=== PATIENT | female | born 1945 | race Caucasian/White ===

== ENCOUNTER → 2020-11-25 | Outpatient (CLI) | payer MEDICARE, OTHER ==
[~2020-11-25] MED LIST: ACETAMINOPHEN325 MG PO; ACYCLOVIR400 MG PO; AMLODIPINE BESYL5 MG PO; CLARITIN 10MG T10 MG PO; COLACE 100MG C100 MG PO; COMPAZINE10 MG PO; DONEPEZIL HCL5 MG PO; FERROUS SULFAT325 M2 PO; LEVOFLOXACIN500 MG PO; LOW DOSE ASPIRI81 MG PO; MAGIC MOUTHWASH PO; MEGACE 400400 MG/10 PO; NOXAFIL100 MG PO; PREDNISONE 10 M10 MG PO; PROZAC 20 MG CA20 MG PO; SYNTHROID75 MCG PO; TAB-A-VITE TA400 MC1 PO; VALACYCLOVIR500 MG PO; VENTOLIN HFA 66.7 GM INH; VITAMIN D 40400 UNIT PO
== END ==
LOC: EXRD 13:09
DX: Z09 Encounter for follow-up examination after completed treatment for conditions other than malignant neoplasm (principal); Z86.16 Personal history of COVID-19; R91.8 Other nonspecific abnormal finding of lung field
CPT/HCPCS: 71046

== ENCOUNTER → 2021-01-15 | Outpatient (CLI) | payer MEDICARE, OTHER ==
[2021-01-15 13:44] LABS: RED BLOOD COUNT 1.66 M/UL (4.00-5.10); WHITE BLOOD COUNT 1.8 K/UL (4.5-11.0)
[2021-01-15 15:06] LABS: HEMOGLOBIN 5.9 gm/dl (12.3-15.3)
== END ==
LOC: LAB 11:26
PROVIDERS: Family Medicine
DX: D50.9 Iron deficiency anemia, unspecified (principal); D61.818 Other pancytopenia; R53.83 Other fatigue; R94.4 Abnormal results of kidney function studies
CPT/HCPCS: 36415; 80048; 82728; 83540; 83550; 85025; 85045

== ENCOUNTER → 2021-02-02 | Outpatient (CLI) | payer MEDICARE, OTHER ==
[2021-02-02 09:30] LABS: HEMOGLOBIN 8.6 gm/dl (12.3-15.3); RED BLOOD COUNT 2.71 M/UL (4.00-5.10)
[2021-02-02 09:36] LABS: WHITE BLOOD COUNT 1.3 K/UL (4.5-11.0)
== END ==
LOC: LAB 09:09
PROVIDERS: Internal Medicine
DX: D61.818 Other pancytopenia (principal); C92.A0 Acute myeloid leukemia with multilineage dysplasia, not having achieved remission
CPT/HCPCS: 36415; 85025

== ENCOUNTER → 2021-02-11 | Outpatient (CLI) | payer MEDICARE, OTHER ==
[2021-02-11 14:09] LABS: HEMOGLOBIN 7.6 gm/dl (12.3-15.3)
== END ==
LOC: LAB 12:45
PROVIDERS: Internal Medicine
DX: D61.818 Other pancytopenia (principal); C92.A0 Acute myeloid leukemia with multilineage dysplasia, not having achieved remission
CPT/HCPCS: 36415; 85014; 85018; 86850; 86900; 86901; 86920

== ENCOUNTER → 2021-02-12 | Outpatient (CLI) | payer MEDICARE, OTHER | LOC: OPSV 08:00 | DX: D61.818 Other pancytopenia (principal); C92.A0 Acute myeloid leukemia with multilineage dysplasia, not having achieved remission | CPT/HCPCS: G0463; J7050 ==

== ENCOUNTER → 2021-02-14 | Outpatient (CLI) | payer MEDICARE ==
[2021-02-14 11:12] LABS: HEMOGLOBIN 7.5 gm/dl (12.3-15.3); RED BLOOD COUNT 2.42 M/UL (4.00-5.10)
[2021-02-14 11:17] LABS: WHITE BLOOD COUNT 0.6 K/UL (4.5-11.0)
== END ==
LOC: LAB 10:35
PROVIDERS: Internal Medicine
DX: C92.A0 Acute myeloid leukemia with multilineage dysplasia, not having achieved remission (principal); D61.818 Other pancytopenia
CPT/HCPCS: 36415; 85025

== ENCOUNTER → 2021-02-17 | Outpatient (CLI) | payer MEDICARE ==
[2021-02-17 11:48] LABS: HEMOGLOBIN 7.5 gm/dl (12.3-15.3); RED BLOOD COUNT 2.43 M/UL (4.00-5.10)
[2021-02-17 12:08] LABS: WHITE BLOOD COUNT 0.9 K/UL (4.5-11.0)
== END ==
LOC: LAB 11:17
PROVIDERS: Internal Medicine
DX: C92.A0 Acute myeloid leukemia with multilineage dysplasia, not having achieved remission (principal); D61.818 Other pancytopenia
CPT/HCPCS: 36415; 85025

== ENCOUNTER → 2021-02-18 | Outpatient (CLI) | payer MEDICARE, SELFPAY | LOC: EXRD 10:40 | DX: M54.5 Low back pain (principal); M43.16 Spondylolisthesis, lumbar region; M51.36 Other intervertebral disc degeneration, lumbar region | CPT/HCPCS: 72110 ==

== ENCOUNTER → 2021-02-20 | Outpatient (CLI) | payer MEDICARE, SELFPAY ==
[2021-02-20 08:59] LABS: HEMOGLOBIN 8.1 gm/dl (12.3-15.3); RED BLOOD COUNT 2.59 M/UL (4.00-5.10)
[2021-02-20 09:00] LABS: WHITE BLOOD COUNT 1.2 K/UL (4.5-11.0)
== END ==
LOC: LAB 08:32
PROVIDERS: Internal Medicine
DX: D61.818 Other pancytopenia (principal); C92.A0 Acute myeloid leukemia with multilineage dysplasia, not having achieved remission
CPT/HCPCS: 36415; 85025

== ENCOUNTER 2021-03-25 21:38 | Emergency (ER) | payer MEDICARE, SELFPAY ==
[~2021-03-25 21:38] MED LIST changes: -ACETAMINOPHEN325 MG PO; -ACYCLOVIR400 MG PO; -AMLODIPINE BESYL5 MG PO; -CLARITIN 10MG T10 MG PO; -COMPAZINE10 MG PO; -DONEPEZIL HCL5 MG PO; -LEVOFLOXACIN500 MG PO; -LOW DOSE ASPIRI81 MG PO; -MAGIC MOUTHWASH PO; -NOXAFIL100 MG PO; -PROZAC 20 MG CA20 MG PO; -VALACYCLOVIR500 MG PO
[2021-03-27] MEDS ORDERED: LOW DOSE ASPIRI81 MG PO (09:25)
[2021-03-27] MEDS ORDERED: NOXAFIL100 MG PO (09:25)
[2021-03-27] MEDS ORDERED: LEVOFLOXACIN500 MG PO (09:26)
[2021-03-27] MEDS ORDERED: ACYCLOVIR400 MG PO (09:26)
[2021-03-27] MEDS ORDERED: COMPAZINE10 MG PO (09:29)
== END 2021-03-26 01:14 | disposition home or self-care (01) ==
LOC: ER1 21:38
DX: S09.90XA Unspecified injury of head, initial encounter (principal); S80.02XA Contusion of left knee, initial encounter; S00.83XA Contusion of other part of head, initial encounter; Z90.710 Acquired absence of both cervix and uterus; W22.8XXA Striking against or struck by other objects, initial encounter
CPT/HCPCS: 70450; 73564; 99284

== ENCOUNTER 2021-03-27 03:43 | Inpatient (IN) | payer MEDICARE, OTHER ==
[~2021-03-27] VITALS: Ht 165 cm; Wt 74.8 kg
[2021-03-27 04:41] LABS: HEMOGLOBIN 8.5 gm/dl (12.3-15.3); RED BLOOD COUNT 2.67 M/UL (4.00-5.10)
[2021-03-27 05:02] LABS: WHITE BLOOD COUNT 0.1 K/UL (4.5-11.0)
[2021-03-27 08:53] LABS: HEMOGLOBIN 7.4 gm/dl (12.3-15.3)
[2021-03-27] MEDS ORDERED: LOW DOSE ASPIRI81 MG PO (09:25)
[2021-03-27] MEDS ORDERED: NOXAFIL100 MG PO (09:25)
[2021-03-27] MEDS ORDERED: ACYCLOVIR400 MG PO (09:26)
[2021-03-27] MEDS ORDERED: LEVOFLOXACIN500 MG PO (09:26)
[2021-03-27] MEDS ORDERED: COMPAZINE10 MG PO (09:29)
[2021-03-27 09:33] LABS: RED BLOOD COUNT 2.23 M/UL (4.00-5.10); WHITE BLOOD COUNT 0.1 K/UL (4.5-11.0)
[2021-03-27 10:33] LABS: CAMPYLOBACTER Not Detected (Negative); CLOSTRIDIUM DIFFICILE TOX A/B Not Detected (Negative); E.COLI 0157 Not Detected (Negative); ENTEROAGGREGATIVE E.COLI (EAEC Not Detected (Negative); ENTEROPATHOGENIC E.COLI (EPEC) Not Detected (Negative); ENTEROTOXIGENIC E.COLI (ETEC) Not Detected (Negative); PLESIOMONAS SHIGELLOIDES Not Detected (Negative); SALMONELLA Not Detected (Negative); SHIGA-LIK TOX.PRO.E.COLI (STEC Not Detected (Negative); VIBRIO Not Detected (Negative); VIBRIO CHOLERAE Not Detected (Negative); YERSINIA ENTEROCOLITICA Not Detected (Negative)
[2021-03-27 10:34] LABS: ADENOVIRUS F 40/41 Not Detected (Negative); ASTROVIRUS Not Detected (Negative); CRYPTOSPORIDIUM Not Detected (Negative); ENTAMOEBA HISTOLYTICA Not Detected (Negative); GIARDIA LAMBLIA Not Detected (Negative); NOROVIRUS GI/GII Not Detected (Negative); ROTOVIRUS A Not Detected (Negative); SAPOVIRUS Not Detected (Negative); SHIG/ENTEROINVAS.ECOLI (EIEC) Not Detected (Negative)
--- NOTE | 2021-03-27 18:15 | NUR ---
PT ARRIVED TO FLOOR FROM ED AT THIS TIME, DAUGHTER AT BEDSIDE, VSS AT THIS TIME WILL CONTINUE TO MONITOR AND PASS ON TO MEDICAL CODING INSTRUCTOR RN
[2021-03-28 02:45] LABS: RED BLOOD COUNT 2.02 M/UL (4.00-5.10)
[2021-03-28 02:48] LABS: WHITE BLOOD COUNT 0.1 K/UL (4.5-11.0)
[2021-03-28 02:49] LABS: HEMOGLOBIN 6.7 gm/dl (12.3-15.3)
--- NOTE | 2021-03-28 13:59 | NUR ---
NO CHANGE FROM PREVIOUS ASSESSMENT
[2021-03-29 04:14] LABS: RED BLOOD COUNT 2.46 M/UL (4.00-5.10); WHITE BLOOD COUNT 0.1 K/UL (4.5-11.0)
[2021-03-30 03:15] LABS: HEMOGLOBIN 8.1 gm/dl (12.3-15.3); RED BLOOD COUNT 2.47 M/UL (4.00-5.10)
[2021-03-30 03:22] LABS: WHITE BLOOD COUNT 0.1 K/UL (4.5-11.0)
[2021-03-31 11:26] LABS: HEMOGLOBIN 7.9 gm/dl (12.3-15.3); RED BLOOD COUNT 2.43 M/UL (4.00-5.10)
[2021-03-31 11:33] LABS: WHITE BLOOD COUNT 0.2 K/UL (4.5-11.0)
[2021-04-01 03:14] LABS: HEMOGLOBIN 7.8 gm/dl (12.3-15.3); RED BLOOD COUNT 2.4 M/UL (4.00-5.10)
[2021-04-01 03:22] LABS: WHITE BLOOD COUNT 0.3 K/UL (4.5-11.0)
[2021-04-02 11:48] LABS: HEMOGLOBIN 7.6 gm/dl (12.3-15.3); RED BLOOD COUNT 2.33 M/UL (4.00-5.10)
[2021-04-02 12:12] LABS: WHITE BLOOD COUNT 0.4 K/UL (4.5-11.0)
[2021-04-02 18:45] LABS: HEMOGLOBIN 7.1 gm/dl (12.3-15.3); RED BLOOD COUNT 2.2 M/UL (4.00-5.10)
[2021-04-02 18:50] LABS: WHITE BLOOD COUNT 0.5 K/UL (4.5-11.0)
[2021-04-03 08:17] LABS: HEMOGLOBIN 7.3 gm/dl (12.3-15.3); RED BLOOD COUNT 2.22 M/UL (4.00-5.10)
[2021-04-03 08:19] LABS: WHITE BLOOD COUNT 0.6 K/UL (4.5-11.0)
[2021-04-04 14:56] LABS: HEMOGLOBIN 7.1 gm/dl (12.3-15.3); RED BLOOD COUNT 2.18 M/UL (4.00-5.10)
[2021-04-04 15:00] LABS: WHITE BLOOD COUNT 0.8 K/UL (4.5-11.0)
[2021-04-05 03:17] LABS: RED BLOOD COUNT 2.18 M/UL (4.00-5.10)
[2021-04-05 03:21] LABS: WHITE BLOOD COUNT 1.2 K/UL (4.5-11.0)
[2021-04-06 01:54] LABS: RED BLOOD COUNT 2.05 M/UL (4.00-5.10)
[2021-04-06 01:56] LABS: HEMOGLOBIN 6.6 gm/dl (12.3-15.3); WHITE BLOOD COUNT 1.2 K/UL (4.5-11.0)
[2021-04-07 04:55] LABS: RED BLOOD COUNT 1.97 M/UL (4.00-5.10)
[2021-04-07 05:02] LABS: HEMOGLOBIN 6.3 gm/dl (12.3-15.3); WHITE BLOOD COUNT 1.8 K/UL (4.5-11.0)
[2021-04-07] MEDS ORDERED: MAGIC MOUTHWASH PO (15:47)
[2021-04-07] MEDS ORDERED: CLARITIN 10MG T10 MG PO (15:47)
[2021-04-07] MEDS ORDERED: ACETAMINOPHEN325 MG PO (15:47)
[2021-04-07] MEDS ORDERED: VALACYCLOVIR500 MG PO (15:47)
[2021-04-08 05:10] LABS: RED BLOOD COUNT 1.94 M/UL (4.00-5.10); WHITE BLOOD COUNT 1.6 K/UL (4.5-11.0)
[2021-04-08 05:18] LABS: HEMOGLOBIN 6.2 gm/dl (12.3-15.3)
[2021-04-08 22:35] LABS: HEMOGLOBIN 7.1 gm/dl (12.3-15.3)
[2021-04-08 22:48] LABS: RED BLOOD COUNT 2.31 M/UL (4.00-5.10); WHITE BLOOD COUNT 2.1 K/UL (4.5-11.0)
[2021-04-09 05:08] LABS: RED BLOOD COUNT 2.2 M/UL (4.00-5.10); WHITE BLOOD COUNT 1.9 K/UL (4.5-11.0)
[2021-04-09 05:10] LABS: HEMOGLOBIN 6.9 gm/dl (12.3-15.3)
--- NOTE | 2021-04-09 17:00 | NUR ---
ER DR, DR. PATEL CAME TO FLOOR TO PLACE [place] ROCKET FOR PT'S PERSISTANT NOSE BLEED AND PT STATES SHE DID NOT WANT IT. DR. PATEL STATES TO LEAVE NOSE CLAMP IN PLACE LONG PT CAN TOLERATE AND IF BLEEDING PERSIST MAY WANT TO TRY THE LIQUID COCAINE. DR. RANDHAWA PRESENT ON FLOOR AND DR. PATEL EXPLAINED TO HIM WELL.
--- NOTE | 2021-04-09 17:58 | NUR ---
DR. LOPEZ CALLED AND ORDERED FOR PT TO HAVE ONE UNIT OF PLATELETS IN ADDITION TO THE ONE THAT WAS GIVEN.
--- NOTE | 2021-04-09 18:26 | NUR ---
DR. LOPEZ CALLED WITH NEW ORDERS NOTED
[2021-04-10 02:50] LABS: HEMOGLOBIN 7.1 gm/dl (12.3-15.3); RED BLOOD COUNT 2.27 M/UL (4.00-5.10); WHITE BLOOD COUNT 1.8 K/UL (4.5-11.0)
[2021-04-11 02:31] LABS: HEMOGLOBIN 8.2 gm/dl (12.3-15.3)
[2021-04-11 03:14] LABS: RED BLOOD COUNT 2.68 M/UL (4.00-5.10)
[2021-04-12 02:32] LABS: HEMOGLOBIN 8.3 gm/dl (12.3-15.3); RED BLOOD COUNT 2.67 M/UL (4.00-5.10)
--- NOTE | 2021-04-12 18:02 | NUR ---
PATIENT ARRIVED TO ROOM 4114 FROM 6101. NO ACUTE DISTRESS NOTED. ALERT, VERBAL. ORIENTED X4.
[2021-04-13 06:13] LABS: HEMOGLOBIN 8.3 gm/dl (12.3-15.3); RED BLOOD COUNT 2.68 M/UL (4.00-5.10)
[2021-04-14 06:00] LABS: HEMOGLOBIN 8.2 gm/dl (12.3-15.3); RED BLOOD COUNT 2.66 M/UL (4.00-5.10); WHITE BLOOD COUNT 2.1 K/UL (4.5-11.0)
--- NOTE | 2021-04-14 06:19 | NUR ---
notified dr jones of critical platelet level of 19. recieved no new orders. will continue to monitor.
--- NOTE | 2021-04-14 16:52 | NUR ---
PATIENT NOTED TO BE HAVING A NOSE BLEED. DR. FARRELL MADE AWARE. STATED SHE WOULD ADD NEW ORDERS FOR MEDICATION TO STOP BLEEDING AND ORDERS TO INFUSE.
--- NOTE | 2021-04-14 17:25 | NUR ---
RN NOTIFIED RESOURCE NURSE MARIA ESTHER OF PATIENT NOSEBLEED AND REQUESTED ASSIST WITH STOPPING IT. MARIA ESTHER CALLED RESPIRATORY DEPARTMENT AND REQUESTED A NOSE CLAMP TO ENSURE CONTINUOUS PRESSURE TO BLEEDING SOURCE. [facility] APPLIED PENDING ARRIVAL OF AFFREN AND NOSE CLAMP. AFFREN ADMINISTERED PER ORDER. CLAMP REAPPLIED TO NOSE, AFFREN ADMINISTERED. PATIENT INSTRUCTED TO LEAVE CLAMP IN PLACE TO ENSURE CESSATION OF BLEEDING, PATIENT VERBALIZED UNDERSTANDING.
--- NOTE | 2021-04-14 17:40 | NUR ---
PATIENT'S NOSEBLEED HAS STOPPED. WASH RAGS AND NOSE CLAMP LEFT AT BEDSIDE WITH PATIENT IN CASE BLEEDING BEGINS AGAIN. RN INSTRUCTED PATIENT TO APPLY NOSE CLAMP AND RING CALL BUTTON IF BLEEDING BEGINS AGAIN, PATIENT VERBALIZED UNDERSTANDING.
[2021-04-15 06:19] LABS: HEMOGLOBIN 7.7 gm/dl (12.3-15.3); RED BLOOD COUNT 2.54 M/UL (4.00-5.10); WHITE BLOOD COUNT 1.9 K/UL (4.5-11.0)
[2021-04-16 04:21] LABS: HEMOGLOBIN 7.8 gm/dl (12.3-15.3); RED BLOOD COUNT 2.55 M/UL (4.00-5.10)
[2021-04-17 05:30] LABS: RED BLOOD COUNT 2.61 M/UL (4.00-5.10); WHITE BLOOD COUNT 2.3 K/UL (4.5-11.0)
[2021-04-18 03:12] LABS: HEMOGLOBIN 7.8 gm/dl (12.3-15.3); RED BLOOD COUNT 2.51 M/UL (4.00-5.10); WHITE BLOOD COUNT 2.4 K/UL (4.5-11.0)
[2021-04-20 03:04] LABS: RED BLOOD COUNT 2.67 M/UL (4.00-5.10); WHITE BLOOD COUNT 2.7 K/UL (4.5-11.0)
--- NOTE | 2021-04-23 12:56 | NUR ---
removed tr band with no complications- site no bleeding, no swelling and patient reports of no pain. applied dry dressing-patient giacomo well. patient up and ambulated with no difficulty
[2021-04-24 11:49] LABS: RED BLOOD COUNT 2.83 M/UL (4.00-5.10); WHITE BLOOD COUNT 2.4 K/UL (4.5-11.0)
[2021-04-28] MEDS ORDERED: DONEPEZIL HCL5 MG PO (10:55)
[2021-04-28] MEDS ORDERED: AMLODIPINE BESYL5 MG PO (10:55)
[2021-04-28] MEDS ORDERED: PROZAC 20 MG CA20 MG PO (10:55)
[2021-04-28 11:01] LABS: HEMOGLOBIN 9.1 gm/dl (12.3-15.3); RED BLOOD COUNT 2.86 M/UL (4.00-5.10); WHITE BLOOD COUNT 2.1 K/UL (4.5-11.0)
== END 2021-04-28 20:33 | DRG 834 ==
LOC: ER1 03:43 → CDU 05:36 → MED SURG 4 05:36 → M/S 05:36 → PROG CARE 05:36 → MED SURG 4 04-12 18:03 → M/S 04-17 22:04 → MED SURG 4 04-27 15:13
PROVIDERS: Family Medicine; Internal Medicine; Internal Medicine Infectious Disease; ADMIT Internal Medicine
PROC: 8E0ZXY6 Isolation (ICD-10-PCS; principal; 2021-03-27)
PROC: 07DR0ZX Extraction of Iliac Bone Marrow, Open Approach, Diagnostic (ICD-10-PCS; 2021-03-27)
PROC: 30233N1 Transfusion of Nonautologous Red Blood Cells into Peripheral Vein, Percutaneous Approach (ICD-10-PCS; 2021-04-10)
DX: C92.00 Acute myeloblastic leukemia, not having achieved remission (principal); A41.9 Sepsis, unspecified organism; J80 Acute respiratory distress syndrome; D61.810 Antineoplastic chemotherapy induced pancytopenia; J18.9 Pneumonia, unspecified organism; D61.818 Other pancytopenia; N17.9 Acute kidney failure, unspecified; C95.90 Leukemia, unspecified not having achieved remission; E03.9 Hypothyroidism, unspecified; E78.5 Hyperlipidemia, unspecified; D69.6 Thrombocytopenia, unspecified; D70.9 Neutropenia, unspecified; E87.6 Hypokalemia; N18.30 Chronic kidney disease, stage 3 unspecified; I12.9 Hypertensive chronic kidney disease with stage 1 through stage 4 chronic kidney disease, or unspecified chronic kidney disease; D46.9 Myelodysplastic syndrome, unspecified; T45.1X5A Adverse effect of antineoplastic and immunosuppressive drugs, initial encounter; Z96.652 Presence of left artificial knee joint; N30.90 Cystitis, unspecified without hematuria; B95.2 Enterococcus as the cause of diseases classified elsewhere; M25.512 Pain in left shoulder; R41.82 Altered mental status, unspecified; R04.0 Epistaxis; Z86.16 Personal history of COVID-19; Z87.01 Personal history of pneumonia (recurrent); Y92.89 Other specified places as the place of occurrence of the external cause; Z90.710 Acquired absence of both cervix and uterus; Z80.1 Family history of malignant neoplasm of trachea, bronchus and lung
CPT/HCPCS: 0240U; 36415; 36430; 70450; 71045; 73564; 80048; 80053; 80202; 81001; 81240; 82550; 82553; 82607; 82728; 82746; 83540; 83550; 83605; 83615; 83735; 84100; 84132; 84466; 84484; 85025; 85027; 85049; 85097; 85384; 85610; 85730; 86850; 86900; 86901; 86920; 87040; 87077; 87086; 87186; 87507; 88341; 88342; 93005; 94760; 96374; 97116; 97116-GP-CQ; 97162; 97530; 97530-GP-CQ; 99284; 99285; A6212; J0692; J1100; J1442; J1570; J1885; J2543; J3370; J7030; J7040; J7050; J7070; P9016; P9035; P9037; P9040

== ENCOUNTER → 2021-06-26 | Outpatient (CLI) | payer MEDICARE ==
[~2021-06-26] MED LIST changes: +ACETAMINOPHEN325 MG PO; +ACYCLOVIR400 MG PO; +AMLODIPINE BESYL5 MG PO; +CLARITIN 10MG T10 MG PO; +COMPAZINE10 MG PO; +DONEPEZIL HCL5 MG PO; +LEVOFLOXACIN500 MG PO; +LOW DOSE ASPIRI81 MG PO; +MAGIC MOUTHWASH PO; +NOXAFIL100 MG PO; +PROZAC 20 MG CA20 MG PO; +VALACYCLOVIR500 MG PO
[2021-06-27 10:14] LABS: CREATININE, URINE 54.9 mg/dL (Not Estab.)
== END ==
LOC: LAB 11:09
PROVIDERS: Family Medicine
DX: N18.4 Chronic kidney disease, stage 4 (severe) (principal); M54.9 Dorsalgia, unspecified; D55.9 Anemia due to enzyme disorder, unspecified; E03.9 Hypothyroidism, unspecified; N20.0 Calculus of kidney; Q61.02 Congenital multiple renal cysts; M40.204 Unspecified kyphosis, thoracic region; M51.9 Unspecified thoracic, thoracolumbar and lumbosacral intervertebral disc disorder; M48.04 Spinal stenosis, thoracic region; M46.04 Spinal enthesopathy, thoracic region
CPT/HCPCS: 36415; 72072; 80053; 82043; 82570; 84439; 84443

== ENCOUNTER → 2021-07-21 | Outpatient (CLI) | payer MEDICARE ==
[2021-07-21 10:04] LABS: HEMOGLOBIN 8.4 gm/dl (12.3-15.3); RED BLOOD COUNT 2.58 M/UL (4.00-5.10); WHITE BLOOD COUNT 1.9 K/UL (4.5-11.0)
== END ==
LOC: EROP 09:35
PROVIDERS: Internal Medicine
DX: C92.A0 Acute myeloid leukemia with multilineage dysplasia, not having achieved remission (principal); D61.818 Other pancytopenia
CPT/HCPCS: 36415; 85025

== ENCOUNTER → 2021-07-27 | Outpatient (CLI) | payer MEDICARE ==
[2021-07-27 10:36] LABS: HEMOGLOBIN 8.1 gm/dl (12.3-15.3); RED BLOOD COUNT 2.48 M/UL (4.00-5.10)
[2021-07-27 10:38] LABS: WHITE BLOOD COUNT 1.4 K/UL (4.5-11.0)
== END ==
LOC: LAB 10:12
PROVIDERS: Internal Medicine
DX: C92.A0 Acute myeloid leukemia with multilineage dysplasia, not having achieved remission (principal); D61.818 Other pancytopenia
CPT/HCPCS: 85025

== ENCOUNTER 2021-12-19 14:38 | Emergency (ER) | payer MEDICARE ==
[2021-12-19 16:27] LABS: HEMOGLOBIN 8.5 gm/dl (12.3-15.3)
[2021-12-19 16:40] LABS: WHITE BLOOD COUNT 74.9 K/UL (4.5-11.0)
== END 2021-12-19 19:15 | disposition short-term general hospital (02) ==
LOC: ER1 14:38
PROVIDERS: Emergency Medicine
DX: R04.0 Epistaxis (principal); D69.6 Thrombocytopenia, unspecified; Z88.5 Allergy status to narcotic agent
CPT/HCPCS: 30903; 36430; 36600; 71045; 80053; 82803; 85007; 85027; 85610; 85730; 86850; 86900; 86901; 99284; P9037